=== PATIENT | female | born 2000 | race Two or more races ===

== ENCOUNTER 2025-02-01 19:51 | Emergency (ER) | payer MEDICAID, OTHER ==
[~2025-02-01] VITALS: Ht 162.6 cm; Wt 100.5 kg
[2025-02-01 20:05] VITALS: BP 110/77; PULSE 85; RESP 16; TEMP 98.6; O2SAT 97
--- NOTE | 2025-02-01 22:11 | DVH ---
OB ULTRASOUND <14 WEEKS: HISTORY: TECHNIQUE: Multiple real-time grayscale sonographic images of the pelvis with duplex Doppler color f low, spectral and M-mode analysis. TRANSDUCERS: Transabdominal FINDINGS: The uterus measures 8.4 x 5.2 x 7.7 cm Right ovary measures 2.8 x 1.9 x 1.8 cm with normal Doppler color flow. Cystic lesion measuring up t o 1.6 cm Left ovary was not visualized on this study. IUP single live fetus at 8 weeks 5 days average ultrasound age based on mean crown-rump length of 2.3 cm and gestational sac size of 3.3 cm heart rate detected at 173 beats per minute. Yolk sac is visualized. IMPRESSION: IUP single live fetus 5 days AUA corresponding to an NITZA of September 08, 2025 Possible right-sided corpus luteal cyst measuring 1.6 cm
[2025-02-01 22:14] LABS: Urine Amorphous Crystal FEW /hpf (None Seen); Urine Bacteria MOD /hpf (None Seen); Urine Blood Negative /uL (Negative); Urine Clarity Turbid (Clear); Urine Color Light-Yellow (Yellow); Urine Mucus FEW (None Seen); Urine Protein, UAD Negative (Negative); Urine Specific Gravity 1.019 (1.001-1.035); Urine Squamous Epithelial Cell FEW /hpf (<5); Urine Urobilinogen Normal (Negative); Urine WBC 2 /HPF (0-5); Urine pH 6.5 (5.0-9.0)
--- NOTE | 2025-02-01 23:52 | ED.PDOC ---
RN ACLS HPI Comments Patient is a 24-year-old female who arrives to the ED today for evaluation of concerns. 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 Patient denies any vaginal discharge or vaginal bleeding, but states that she has had some abdominal discomfort and was concerned of the health of the fetus. Patient denies any fever nausea or vomiting. Vital signs were stable on arrival. Chief Complaint: Time Seen by MD: 21:00 Reviewed Notes: Nurses Notes Allergies: Coded Allergies: NO KNOWN ALLERGIES (Unverified , 02/01/25) Information Source: Patient, Friend Mode of Arrival: Ambulatory Timing: Days Prehospital treatment: None Severity: Moderate Vaginal Discharge: None Vaginal Lesions: None Sexual Activity: Sexually Active Past Medical History PAST MEDICAL HISTORY: Denies Surgical History: Denies all surgeries BOTTLE ASSEMBLER History: No Pertinent BOTTLE ASSEMBLER History Family History Family History: Reviewed,noncontributory to illness, No family hx of Cancer, No family hx of DM, No family hx of Heart cheikh, No family hx of HTN, No family hx ofKidney cheikh, No family hx of Liver cheikh, No family hx of Lung cheikh, No family hx of Stroke Social History Smoker: Non-Smoker Alcohol: Denies ETOH Use Drugs: Denies Drug Use Lives In: Home Constitutional: denies: chills, diaphoresis, fatigue, fever, malaise, sweats, weakness, others Respiratory: denies: cough, hemoptysis, orthopnea, SOB at rest, shortness of breath, SOB with excertion, stridor, wheezing, others Cardiovascular: denies: chest pain, dizzy spells, diaphoresis, Dyspnea on exertion, edema, irregular heart beat, left arm pain, lightheadedness, palpitations, PND, syncope, others Gastrointestinal: reports: abdominal pain; denies: abdomen distended, blood streaked bowels, constipated, diarrhea, dysphagia, difficulty swallowing, hematemesis, melena, nausea, poor appetite, poor fluid intake, rectal bleeding, rectal pain, vomiting, others Genitourinary: denies: abnormal vagina bleeding, burning, dyspareunia, dysuria, flank pain, frequency, hematuria, incontinence, pain, , vagina discharge, urgency, others Neurological: denies: dizziness, fainting, headache, left sided numbness, left sided weakness, numbness, paresthesia, pre-existing deficit, right sided numbness, right sided weakness, seizure, speech problems, tingling, tremors, weakness, others Musculoskeletal: denies: back pain, gout, joint pain, joint swelling, muscle p ain, muscle stiffness, neck pain, others Integumetry: denies: bruises, change in color, change in hair/nails, dryness, laceration, lesions, lumps, rash, wounds, others Allergic/Immunocompromised: denies: Difficulty Healing, Frequent Infections, Hives, Itching, others Hematologic/Lymphatic: denies: anemia, blood clots, easy bleeding, easy bruising, swollen glands, others Endocrine: denies: excessive hunger, excessive sweating, excessive thirst, excessive urination, flushing, intolerance to cold, intolerance to heat, unexplained weight gain, unexplained weight loss, others Psychiatric: denies: anxiety, bipolar disorder, depression, hopeless, panic disorder, schizophrenia, sleepless, suicidal, others Physical Exam General Appearance: Mild Distress (Moderate distress due to abdominal pain concerns.), Obese HEENT: Normal ENT Inspection, Pharynx Normal, TMs Normal Neck: Full Range of Motion, Non-Tender, Normal, Normal Inspection Respiratory: Chest Non-Tender, Lungs Clear, No Accessory Muscle Use, No Respiratory Distress, Normal Breath Sounds Cardiovascular: No Edema, No JVD, No Murmur, No Gallop, Normal Peripheral Pulses, Regular Rate/Rhythm Breast Exam: Deferred Gastrointestinal: Other (Diffuse bilateral lower pelvic/abdomen tenderness to palpation. No pulsatile masses. Difficult to assess due to body habitus.) Genitalia: Deferred Pelvic: Deferred Rectal: Deferred Extremities: No calf tenderness, Normal capillary refill, Normal inspection, Normal range of motion, Non-tender, No pedal edema Neurologic: Alert, No Motor Deficits, Normal Affect, Normal Mood, No Sensory Deficits Cerebellar Function: Normal Reflexes: Normal Skin: Dry, Normal Color, Warm Lymphatic: No Adenopathy Was a procedure done? Was a procedure done?: No Differential Diagnosis (BOTTLE ASSEMBLER) Vaginal Bleeding: - Threatened Vaginal Discharge: Other (Healthy ) X-Ray, Labs, Meds, VS Vital Signs Date Time Temp Pulse Resp B/P (MAP) Pulse Ox O2 Delivery O2 Flow Rate FiO2 02/01/25 20:05 98.6 85 16 110/77 (88) 97 98.6 Lab Test 02/01/25 20:41 02/01/25 20:08 Range/Units Beta HCG, Quantitative 25838.1 H 1.5-4.2 mIU/mL Urine Color Light-yellow Yellow Urine Clarity Turbid H Clear Urine pH 6.5 5.0-9.0 Urine Specific Hannacroix 1.019 1.001-1.035 Urine Protein Negative Negative Urine Ketones Negative Negative Urine Blood Negative Negative /uL Urine Nitrite 2+ H Negative Urine Bilirubin Negative Negative Urine Urobilinogen Normal Negative mg/dL Urine Leukocyte Esterase Negative Negative /uL Urine RBC 1 0 - 4 /hpf Urine Microscopic WBC 2 0-5 /HPF Urine Squamous Epithelial Cells Few <5 /hpf Urine Amorphous Crystals Few None Seen /hpf Urine Bacteria Mod H None Seen /hpf Urine Mucus Few None Seen Urine Glucose Normal Normal mg/dL X-Ray, Labs, Meds, VS Comment [place]'s [place] [address]. OB ultrasound confirmed a healthy eight week five day . Attempted to locate the patient in the lobby to advise her of findings, but it appears the patient has eloped from the facility. 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
== END 2025-02-01 23:32 | disposition left against medical advice (07) ==
LOC: ER 20:02
DX: Z34.91 Encounter for supervision of normal pregnancy, unspecified, first trimester (principal); R10.2 Pelvic and perineal pain; Z3A.08 8 weeks gestation of pregnancy
CPT/HCPCS: 36415; 76801; 81001; 84702